=== PATIENT | female | born 1975 | race Caucasian/White ===

== ENCOUNTER → 2024-02-04 | Outpatient (CLI) | payer OTHER ==
[~2024-02-04] MED LIST: AMOCLA500 PO; Adipex-P37.5 MG PO; CLIN150; DIAZ5 PO; FASTIN; HYDACE5 PO; IBUP800; MEDR150I; Mirena1 EACH VG; NAPR500 PO; OXYACE5T PO; OXYACE7.5T PO; PENVK500 PO; PRED10 PO; PROM25 PO; RXOXYACE PO; RXPROM25S PR; [UNRECOGNIZED DRUG - OTHER]
== END | disposition home or self-care (01) ==
LOC: LAB SHORT 07:54 → PLD 07:54
DX: L72.11 Pilar cyst (principal)
CPT/HCPCS: 88304